=== PATIENT | female | born 1965 | race Two or more races ===

== ENCOUNTER → 2017-06-29 | Outpatient (CLI) | payer OTHER ==
--- NOTE | 2017-06-29 09:13 | KCIC ---
History: Severe low back pain for 6 days, history of lupus and fibromyalgia. Comparison: None. Findings: AP, lateral, and bilateral oblique views of the lumbar spine, 5 images. 5 lumbar type vertebral bodies are present. No acute fracture or acute malalignment is identified. There is grade 1 spondylolisthesis at L4-5 from facet hypertrophy. Advanced degenerative disc disease seen at L5-S1 with marginal disc osteophyte formation and significant loss of disc space. Mild degenerative disc disease seen at L4-5. Multilevel facet degeneration is seen, worst at L4-5 and L5-S1. No spondylolysis is seen. Impression: Multilevel degeneration, most evident at L4-5 and L5-S1. Electronically signed by: Manuel Ramos MD (06/29/2017 9:10 AM) [place] [id number]
== END | disposition home or self-care (01) ==
LOC: KCIC 08:11
PROVIDERS: ATTEND Internal Medicine
DX: M51.36 Other intervertebral disc degeneration, lumbar region (principal); M32.9 Systemic lupus erythematosus, unspecified; M79.7 Fibromyalgia
CPT/HCPCS: 72110

== ENCOUNTER → 2017-11-16 | Outpatient (CLI) | payer OTHER | END | disposition home or self-care (01) | LOC: KCIC 15:36 | DX: M17.12 Unilateral primary osteoarthritis, left knee (principal) | CPT/HCPCS: 73562 ==